=== PATIENT | male | born 1995 | race Caucasian/White ===

== ENCOUNTER 2021-11-30 14:35 | Emergency (ER) | payer OTHER, SELFPAY ==
[2021-11-30 14:36] VITALS: BP 144/124; PULSE 75; RESP 18; TEMP 35.9; O2SAT 100; BMI 19.3
[2021-11-30 15:32] VITALS: BP 144/124; PULSE 75; RESP 18; TEMP 35.9; O2SAT 100
[2021-11-30] MEDS: 0.9% Normal Saline 1,000 ML 1000 ML IV (15:45)
--- NOTE | 2021-11-30 16:11 | EDS_ITS ---
HPI History of Present Illness Chief Complaint: Nausea/Vomiting/Diarrhea Informant: patient Narrative Narrative: Patient states that he has nausea vomiting and watery diarrhea. He was drinking a lot of alcohol all day on Friday. The symptoms started Friday night. It continued yesterday and now today. He really is not able to eat or drink anything. No blood seen in vomitus or stool. No travel. No antibiotics. No history of chronic bowel disease although he has had some episodes like this in the past. No fevers or chills. No cough. No congestion. No loss of taste or smell. No myalgias. He is gets occasional abdominal cramping but no real pain. Mostly gets cramping before he needs to vomit or move his bowels and then it resolves. Only abdominal surgery is appendectomy approximately fifth grade. PFSH PFSH Medical History no medical history Home Medications dicyclomine 20 mg PO TIDAC PRN #20 capsule 09/02/16 [Rx Last Taken Unknown] ondansetron 4 mg PO Q8H PRN PRN #10 tab 09/02/16 [Rx Last Taken Unknown] promethazine [Phenergan Suppository] 25 mg RECTAL Q6H PRN PRN #10 suppos. 09/02/16 [Rx Last Taken Unknown] ondansetron 4 mg PO Q8H PRN #10 tab 11/30/21 [Rx Last Taken Unknown] Allergy/AdvReac Type Severity Reaction Status Date / Time No Known Allergies Allergy Verified 11/30/21 14:36 Surgical History no surgical history Social History Smoking Status: Current every day smoker tobacco type: cigarettes ROS ROS ED Constitutional Constitutional ED: Denies chills or fever(s) Eyes Eyes: Denies change in vision ENT ENT ED: Denies rhinorrhea Cardiovascular Cardiovascular: Denies chest pain or palpitations Respiratory/Chest Respiratory/Chest: Denies cough, dyspnea or sputum Gastrointestinal Gastrointestinal: Reports diarrhea, nausea and vomiting; Denies melena Genitourinary Genitourinary ED: Denies dysuria or hematuria Musculoskeletal Musculoskeletal: Denies myalgias Integumentary Denies rash Neurologic Neurologic: Denies headache(s) or weakness Psychiatric Psychiatric: Denies anxiety or depression Endocrine Endocrinology: Denies polydipsia or polyuria Allergic/Immunologic Allergic/Immunologic ED: Denies mouth swelling, tongue swelling or urticaria EXAM Physical Exam Const Vital Signs: 11/30/21 14:36 11/30/21 15:32 11/30/21 16:24 Temperature 96.7 F L 96.7 F L Temperature Source Temporal Temporal Pulse Rate 75 75 Respiratory Rate 18 18 Blood Pressure 144/124 H 144/124 H 130/77 H Blood Pressure Mean 130 130 94 Pulse Ox 100 100 Oxygen Delivery Method Room Air Room Air 11/30/21 17:04 Temperature Temperature Source Pulse Rate 76 Respiratory Rate 16 Blood Pressure 130/82 H Blood Pressure Mean 98 Pulse Ox 97 Oxygen Delivery Method Room Air Positive well nourished and well developed General Appearance ED: well developed and NAD; Negative for cyanotic or diaphoretic HEENT Reports dry mucous membranes Negative for trauma or tenderness Mouth ED: Yes dry mucous membranes Mouth: dry mucous membranes Eyes General Eye ED: Negative for pale conjunctiva or scleral icterus Neck no JVD Chest Wall inspection of chest normal Resp normal respiratory effort and clear to auscultation bilaterally Auscultation: Negative for rales, rhonchi or wheezes Cardio regular rate and regular rhythm GI normal to inspection, nondistended, normoactive bowel sounds, non-tender and non-distended Auscultation: normoactive bowel sounds Palpation: soft Back/Spine no CVA tenderness General Back: CVA tenderness Extremity normal to inspection General Extremety ED: Negative for edema or tenderness General Extremity: Negative for edema Neuro oriented x3 Sensorium / Orientation: alert Psych mental status grossly normal Skin no rashes or lesions noted MDM MDM MDM Narrative Medical decision making narrative: Patient has normal CBC. Electrolytes show minimal elevation in the BUN. LFTs do show a slight bump in his bilirubin that might be due to heavy drinking. I rechecked the patient. He looks and feels much better. He like to go home. I will get him home on Zofran. If he develops fevers, pains, recurrent symptoms or blood in the stool or vomitus he should return. He states he had not eaten all day and then he drank a lot when this started. I encouraged him not to do that. Lab Data Attestation: I reviewed the patient's lab results. Labs: Laboratory Results - last 24 hr 11/30/21 11/30/21 15:25 15:25 WBC 9.4 RBC 5.28 Hgb 16.5 Hct 47.8 MCV 90.5 MCH 31.3 MCHC 34.5 RDW Std Deviation 41.1 RDW Coeff of [place] 12.5 Plt Count 172 MPV 10.3 Immature Gran % (Auto) 0.300 Neut % (Auto) 72.9 H Lymph % (Auto) 16.7 L [place] % (Auto) 9.8 Eos % (Auto) 0.0 Baso % (Auto) 0.3 Absolute Neuts (auto) 6.9 Absolute Lymphs (auto) 1.57 Nucleated RBC % 0 Sodium 133 L Potassium 3.8 Chloride 97 L Carbon Dioxide 25.0 Anion Gap 11 BUN 22 H Creatinine 1.12 Estim Creat Clear Calc 88.09 Est GFR (MDRD) Af Amer 103 Est GFR (MDRD) Non-Af 85 BUN/Creatinine Ratio 19.6 Glucose 110 H Calcium 9.8 Total Bilirubin 2.50 H AST 29 ALT 37 Alkaline Phosphatase 75 Total Protein 9.0 H Albumin 4.9 Globulin 4.1 Albumin/Globulin Ratio 1.2 Lipase 60 L Discharge Plan Triage Chief Complaint: Nausea/Vomiting/Diarrhea ED Provider: Bright Villanueva Dx/Rx/DC Orders Clinical Impression: Nausea vomiting and diarrhea Prescriptions: New ondansetron 4 mg tablet,disintegrating 4 mg PO Q8H PRN (Reason: nausea and vomiting) Qty: 10 RF: 0 No Action ondansetron 4 MG tablet 4 mg PO Q8H PRN PRN (Reason: Nausea) Qty: 10 RF: 0 dicyclomine 10 MG capsule 20 mg PO TIDAC PRN (Reason: Cramp) Qty: 20 RF: 0 promethazine [Promethegan] 25 MG suppository 25 mg RECTAL Q6H PRN PRN (Reason: Nausea) Qty: 10 RF: 0 Primary Care Provider: Tianna Mandel Referrals: Tianna Mandel MD [Primary Care Provider] - 3-5 Days if not improving Disposition Disposition: Home, Self Care
[2021-11-30] MEDS: Ondansetron 4 MG/2 ML Vial IV (16:18)
[2021-11-30 16:22] LABS: Absolute Lymphocyte Count 1.57 X10^3/uL (0.83-4.51); Absolute Neutrophil Count 6.9 X10^3/uL (2.0-7.7); Basophil# 0.03 X10^3/uL; Basophil% 0.3 % (0-1); Hematocrit 47.8 % (40-54); Hemoglobin 16.5 g/dL (13.0-16.5); Lymphocyte # 1.57 X10^3/ul (0.83-4.51); Lymphocyte % 16.7 % (19-41); Mean Corp Hgb Conc 34.5 g/dL (32-36); Mean Corpuscular Hgb 31.3 pg (27.0-32.0); Mean Corpuscular Volume 90.5 fL (80-94); Mean Platelet Vol. 10.3 fl (6.2-12.0); Monocyte# 0.92 X10^3/uL; Monocyte% 9.8 % (0-10); NRBC Flagged by Analyzer 0 % (0-5); Neutrophil # 6.87 X10^3/uL (2.7-7.7); Neutrophil % 72.9 % (47-70); Platelet Count 172 K/mm3 (150-450); RBC Distribution Width CV 12.5 % (11.6-14.6); RBC Distribution Width SD 41.1 fl (35.1-43.9); Red Blood Count 5.28 M/mm3 (4.6-6.2); White Blood Count 9.4 K/mm3 (4.4-11.0)
[2021-11-30 16:24] VITALS: BP 130/77
[2021-11-30 16:35] LABS: ALB/GLOB Ratio 1.2 RATIO (0.9-2.4); AST(SGOT) 29 U/L (15-37); Alanine Aminotransfer ALT/SGPT 37 U/L (16-61); Albumin, Serum 4.9 g/dL (3.2-5.0); Alkaline Phosphatase 75 U/L (45-117); Anion Gap 11 (5-15); BUN 22 mg/dL (7-18); BUN/Creat Ratio 19.6 RATIO (10-20); Calcium,Total 9.8 mg/dL (8.5-10.1); Chloride 97 mmol/L (98-107); Creatinine, Serum 1.12 mg/dL (0.70-1.30); EST Glomerular Filtration Rate 85 mL/min (>60); Est Glom Filt Rate - Afr Amer 103 mL/min (>60); Estimated Creatinine Clearance 88.09 ml/min; Globulin 4.1 g/dL (2.2-4.2); Glucose 110 mg/dL (74-106); Lipase 60 U/L (73-393); Potassium 3.8 mmol/L (3.5-5.1); Sodium Level 133 mmol/L (136-145)
[2021-11-30 17:04] VITALS: BP 130/82; PULSE 76; RESP 16; O2SAT 97
== END 2021-11-30 18:00 | disposition home or self-care (01) ==
PROVIDERS: Emergency Provider Emergency Medicine; PCP Pediatrics
DX: R11.2 Nausea with vomiting, unspecified (principal); R19.7 Diarrhea, unspecified; F17.210 Nicotine dependence, cigarettes, uncomplicated
CPT/HCPCS: 80053; 83690; 85025; 96361; 96374; 99282; J7030; A4216; J2405

== ENCOUNTER 2023-07-17 21:47 | Emergency (ER) | payer OTHER, SELFPAY ==
[2023-07-17 21:49] VITALS: BP 155/115; PULSE 103; RESP 18; TEMP 36.3; O2SAT 100; BMI 20.8
--- NOTE | 2023-07-17 22:00 | EKG12_ITS ---
Test Reason : CP Blood Pressure : / mmHG Vent. Rate : 093 BPM Atrial Rate : 093 BPM P-R Int : 162 ms QRS Dur : 094 ms QT Int : 358 ms P-R-T Axes : 072 068 053 degrees QTc Int : 445 ms Normal sinus rhythm Normal ECG Confirmed by CELIA GUNTER ([id number]), associate editor NAREN QUINTANILLA ([id number]) on 07/21/2023 1:55:01 PM Referred By: TRAVIS Confirmed By:CELIA GUNTER
[2023-07-17] MEDS: Labetalol (Prefilled) 20 MG/4 ML IV (22:37)
[2023-07-17 22:46] LABS: Absolute Lymphocyte Count 2.22 X10^3/uL (0.83-4.51); Absolute Neutrophil Count 3.8 X10^3/uL (2.0-7.7); Basophil# 0.05 X10^3/uL; Basophil% 0.7 % (0-1); Eosinophil# 0.08 X10^3/uL; Eosinophils% 1.2 % (0-5); Hematocrit 41.8 % (40-54); Hemoglobin 13.8 g/dL (13.0-16.5); Lymphocyte # 2.22 X10^3/ul (0.83-4.51); Lymphocyte % 32.7 % (19-41); Mean Corpuscular Hgb 31.6 pg (27.0-32.0); Mean Corpuscular Volume 95.7 fL (80-94); Mean Platelet Vol. 9.7 fl (6.2-12.0); Monocyte# 0.63 X10^3/uL; Monocyte% 9.3 % (0-10); NRBC Flagged by Analyzer 0 % (0-5); Platelet Count 218 K/mm3 (150-450); RBC Distribution Width SD 46.5 fl (35.1-43.9); Red Blood Count 4.37 M/mm3 (4.6-6.2); White Blood Count 6.8 K/mm3 (4.4-11.0)
--- NOTE | 2023-07-17 22:50 | RAD_ITS ---
STUDY: X-RAY CHEST REASON FOR EXAM: Male, 28 years old. chest pain TECHNIQUE: PA and lateral views of the chest. COMPARISON: None. FINDINGS: The lungs are clear and expanded. There is no demonstrated pleural abnormality. Normal size heart. Normal mediastinum and yancy. Normal visualized pulmonary arteries. Normal visualized aortic arch and descending thoracic aorta. Normal visualized thoracic spine. Normal visualized ribs, clavicles, and shoulders. There is no demonstrated abnormality of the visualized soft tissue structures of the upper abdomen. RAD/Chest PA and Lateral IMPRESSION: Normal x-ray examination of the chest. Electronically Signed: Hamlet Jovel MD at 23:07 EDT ,
[2023-07-17 23:00] VITALS: BP 138/90; PULSE 72; RESP 20; O2SAT 96
[2023-07-17 23:04] LABS: Anion Gap 8 (5-15); BUN 15 mg/dL (7-18); BUN/Creat Ratio 18.7 RATIO (10-20); Calcium,Total 9.1 mg/dL (8.5-10.1); Chloride 108 mmol/L (98-107); EST Glomerular Filtration Rate 123 mL/min (>60); Est Glom Filt Rate - Afr Amer 149 mL/min (>60); Estimated Creatinine Clearance 126.67 ml/min; Glucose 89 mg/dL (74-106); Potassium 3.6 mmol/L (3.5-5.1); Sodium Level 141 mmol/L (136-145); Troponin-I HS 5 pg/mL (3.0-78.0)
[2023-07-18 00:22] VITALS: BP 134/94; PULSE 70; RESP 19; O2SAT 98
--- NOTE | 2023-07-18 00:39 | EX.ED.DYSGE1 ---
HPI History of Present Illness Chief Complaint: Chest Pain Informant: patient and spouse/S.O. Narrative Narrative: Patient is a 28-year-old male with no significant past medical history. He states he went to the dentist today and they took his blood pressure and it was elevated and secondary to this they would not remove his tooth. Patient states that he has had chest discomfort but its been present for the past month and a half. He does admit to smoking but otherwise denies any family history of heart disease at a young age. He also denies any excessive stimulant use or illicit drug use. PFSH PFSH Medical History no medical history Home Medications dicyclomine 10 mg capsule 20 mg (2 x 10 mg) PO TIDAC PRN Cramp ##20 09/02/16 [Rx Last Taken Unknown] ondansetron 4 mg disintegrating tablet 4 mg PO Q8H PRN PRN Nausea #10 tabs 09/02/16 [Rx Last Taken Unknown] promethazine 25 mg rectal suppository (Promethegan) 25 mg RECTAL Q6H PRN PRN Nausea ##10 09/02/16 [Rx Last Taken Unknown] ondansetron 4 mg disintegrating tablet 4 mg PO Q8H PRN nausea and vomiting #10 tabs 11/30/21 [Rx Last Taken Unknown] lisinopril 20 mg tablet 20 mg PO DAILY #30 tabs 07/18/23 [Rx Last Taken Unknown] Allergy/AdvReac Type Severity Reaction Status Date / Time No Known Allergies Allergy Verified 07/17/23 21:48 Surgical History no surgical history Social History Smoking Status: Current every day smoker tobacco type: cigarettes ROS ROS ED Constitutional Constitutional ED: Denies chills or fever(s) ENT ENT ED: Denies sore throat Cardiovascular Cardiovascular: Reports chest pain Respiratory/Chest Respiratory/Chest: Denies cough or dyspnea Gastrointestinal Gastrointestinal: Denies abdominal pain, diarrhea, nausea or vomiting Genitourinary Genitourinary ED: Denies dysuria Musculoskeletal Musculoskeletal: Denies myalgias Integumentary Denies rash Neurologic Neurologic: Denies headache(s), paresthesias or weakness Hematologic/Lymphatic Hematologic/Lymphatic: Denies easy bleeding or easy bruising EXAM Physical Exam Const Vital Signs: 07/17/23 21:49 07/17/23 22:32 07/17/23 23:00 Temperature 97.4 F L Temperature Source Temporal Pulse Rate 103 H 72 Respiratory Rate 18 20 H Respiratory Effort Normal Blood Pressure 155/115 H 138/90 H Blood Pressure Mean 128 106 Pulse Ox 100 96 Oxygen Delivery Method Room Air Room Air 07/18/23 00:22 07/18/23 00:43 Temperature Temperature Source Pulse Rate 70 87 Respiratory Rate 19 H 18 Respiratory Effort Blood Pressure 134/94 H 132/89 H Blood Pressure Mean 107 Pulse Ox 98 100 Oxygen Delivery Method Room Air Positive well nourished and well developed General Appearance ED: well developed HEENT HEENT Narrative: Normocephalic atraumatic Eyes PERRL and EOMs intact bilaterally General Eye ED: Negative for scleral icterus Neck supple Neck Narrative: No carotid bruit noted Chest Wall palpation of chest normal Resp normal respiratory effort and clear to auscultation bilaterally Cardio regular rate and regular rhythm Rate: other Other Details: Radial and carotid pulses are equal and symmetric GI normal to inspection, nondistended, normoactive bowel sounds, non-tender and non-distended GI Narrative: No voluntary guarding or rigidity. No pulsatile mass or fluid wave Auscultation: normoactive bowel sounds Palpation: soft Extremity normal to inspection Extremity Narrative: No asymmetric edema no pitting edema negative Homans' sign bilaterally Neuro oriented x3, CN's II-XII intact bilaterally and no sensory deficits noted Neuro Narrative: Cranial nerves II through XII are grossly intact there are no focal neurologic deficits. No pronator drift no dysmetria no truncal ataxia. NIH stroke scale score of 0 Sensorium / Orientation: alert Motor Exam: strength 5/5 throughout Psych mental status grossly normal Skin no rashes or lesions noted MDM MDM MDM Narrative Medical decision making narrative: Patient arrived to the ER hypertensive but otherwise with stable vitals. Differential diagnosis is for accelerated hypertension versus acute coronary syndrome versus pneumonia versus pleural effusion versus pneumothorax versus acute kidney injury. Secondary to this a basic cardiac work-up was performed. Labs revealed no signs of acute kidney injury and his troponin was normal at 5. Chest x-ray also revealed no acute lung pathology. Patient was given 1 dose of labetalol and had improvement of his blood pressure. On reevaluation he is resting comfortably and neuro exam remains normal. Therefore at this time with negative work-up and no signs of neurologic or cardiac event he can be given outpatient medication and discharged home History & Record Review Discussion w/independent historian: Patient and Significant other Lab Data Attestation: I reviewed the patient's lab results. Labs: Laboratory Results - last 24 hr 07/17/23 22:25 WBC 6.8 RBC 4.37 L Hgb 13.8 Hct 41.8 MCV 95.7 H MCH 31.6 MCHC 33.0 RDW Std Deviation 46.5 H RDW Coeff of [place] 13.0 Plt Count 218 MPV 9.7 Immature Gran % (Auto) 0.100 Neut % (Auto) 56.0 Lymph % (Auto) 32.7 [place] % (Auto) 9.3 Eos % (Auto) 1.2 Baso % (Auto) 0.7 Absolute Neuts (auto) 3.8 Absolute Lymphs (auto) 2.22 Nucleated RBC % 0 Sodium 141 Potassium 3.6 Chloride 108 H Carbon Dioxide 25.0 Anion Gap 8 BUN 15 Creatinine 0.80 Estim Creat Clear Calc 126.67 Est GFR (MDRD) Af Amer 149 Est GFR (MDRD) Non-Af 123 BUN/Creatinine Ratio 18.7 Glucose 89 Calcium 9.1 Troponin I High Sens 5 Radiography Diagnostic Testing: Clinical Impression(s) from Imaging Studies Chest X-Ray 07/17/23 22:50 IMPRESSION: Normal x-ray examination of the chest. Electronically Signed: Hamlet Jovel MD at 23:07 EDT Reading Location ID and State: 4 [facility] Tel , Service support , 2 view chest x-ray as interpreted by the emergency medicine physician reveals no acute infiltrate pneumothorax or pleural effusion Discharge Plan Triage Chief Complaint: Chest Pain ED Provider: Ramesh Martin Dx/Rx/DC Orders Clinical Impression: Acute nonspecific chest pain with low risk of coronary artery disease, Hypertension Instructions: Controlling High Blood Pressure Prescriptions: New lisinopril 20 mg tablet 20 mg PO DAILY Qty: 30 2RF No Action ondansetron 4 MG tablet 4 mg PO Q8H PRN PRN (Reason: Nausea) Qty: 10 0RF dicyclomine 10 MG capsule 20 mg PO TIDAC PRN (Reason: Cramp) Qty: 20 0RF promethazine [Promethegan] 25 MG suppository 25 mg RECTAL Q6H PRN PRN (Reason: Nausea) Qty: 10 0RF ondansetron 4 mg tablet,disintegrating 4 mg PO Q8H PRN (Reason: nausea and vomiting) Qty: 10 0RF Primary Care Provider: Care Physician,No Primary Referrals: Tianna Johansen MD [Med Staff - Technical Solution Architect] - Care Physician,No Primary [Primary Care Provider] - Activity Restrictions/Additional Instructions: Please continue to check your blood pressure and heart rate a few times a week and keep track of this and a blood pressure journal. Take your medication as directed and return to the ER should you have any further concerns Disposition Disposition: Home, Self Care Discharge Date/Time: 07/18/23 00:47
[2023-07-18 00:43] VITALS: BP 132/89; PULSE 87; RESP 18; O2SAT 100
== END 2023-07-18 00:47 | disposition home or self-care (01) ==
PROVIDERS: Emergency Provider Emergency Medicine; Visit Provider Emergency Medicine
DX: R07.9 Chest pain, unspecified (principal); F17.210 Nicotine dependence, cigarettes, uncomplicated
CPT/HCPCS: 71046; 80048; 84484; 85025; 93005; 96374; 99283; A4216

== ENCOUNTER 2024-05-12 06:54 | Emergency (ER) | payer OTHER, SELFPAY ==
[2024-05-12 06:54] VITALS: BP 177/111; PULSE 72; RESP 18; TEMP 36.2; O2SAT 97; BMI 19.1
--- NOTE | 2024-05-12 07:05 | NURSING ---
Pts signif other requesting work note for the past 3 days
--- NOTE | 2024-05-12 07:12 | ED.VIS.GI ---
HPI HPI - GI History of Present Illness Chief Complaint: Nausea/Vomiting Narrative Narrative: 28-year-old male who denies significant past medical history presents with nausea and vomiting that has had since Friday. His symptoms began approximately 4 days ago. He states this has happened to him in the past and it was from alcohol poisoning. He also admits that he does smoke marijuana but has not since his symptoms began. In the last 24 hours he vomited twice without any blood in his emesis. He states when he tries to eat or drink he cannot keep anything down. States he is not really having diarrhea or any bowel movement for that matter because he has not kept anything down in the last few days. Is having diffuse abdominal cramping. PFSH PFS Home Medications ?Medication ?Instructions ?Recorded ?Last Taken ?Type dicyclomine 10 mg capsule 20 mg (2 x 10 mg) PO TIDAC PRN 09/02/16 Unknown Rx Cramp ##20 ondansetron 4 mg disintegrating 4 mg PO Q8H PRN PRN Nausea #10 tabs 09/02/16 Unknown Rx tablet promethazine 25 mg rectal 25 mg RECTAL Q6H PRN PRN Nausea 09/02/16 Unknown Rx suppository (Promethegan) ##10 ondansetron 4 mg disintegrating 4 mg PO Q8H PRN nausea and 11/30/21 Unknown Rx tablet vomiting #10 tabs lisinopril 20 mg tablet 20 mg PO DAILY #30 tabs 07/18/23 Unknown Rx lisinopril 20 mg tablet 20 mg PO DAILY 30 days #30 tabs 07/18/23 Unknown Rx dicyclomine 20 mg tablet 20 mg PO TID #20 tabs 05/12/24 Unknown Rx ondansetron 4 mg disintegrating 4 mg PO Q6H PRN nausea and 05/12/24 Unknown Rx tablet vomiting #15 tabs potassium chloride 20 mEq 20 meq PO BID 2 days #4 tabs 05/12/24 Unknown Rx tablet,extended release Allergy/AdvReac Type Severity Reaction Status Date / Time No Known Allergies Allergy Verified 07/17/23 21:48 Social History Smoking Status: Current every day smoker tobacco type: cigarettes ROS ROS ED ROS Narrative Constitutional: No fever, no chills. HEENT: No sore throat. No neck pain. No loss of vision. No rhinorrhea. Cardiovascular: No chest pain. No palpitations. No pedal edema. Respiratory: No cough, no shortness of breath. Abdominal: Positive diffuse, crampy abdominal pain. Positive nausea and vomiting, twice in the last 24 hours. Genitourinary: No dysuria. No hematuria. Musculoskeletal: No myalgias. No arthralgias. Neurologic: No headaches. No dizziness. No lightheadedness. Skin: No rash. No change in color. Psychiatric: No depression. No anxiety. EXAM Physical Exam Narrative Exam Narrative: Afebrile. Vital signs noted. Regular rate and rhythm. Lungs clear to auscultation bilaterally. Abdomen soft minimal diffuse tenderness with normal active bowel sounds. No guarding or rebound. Mucous membranes moist. Neurological examination awake, alert, moves all extremities. Const Vital Signs: 05/12/24 06:54 05/12/24 08:54 05/12/24 09:00 Temperature 97.2 F L 97.6 F L Temperature Source Temporal Oral Pulse Rate 72 74 76 Respiratory Rate 18 16 16 Blood Pressure 177/111 H 157/117 H 147/104 H Blood Pressure Mean 133 130 118 Pulse Ox 97 99 99 Oxygen Delivery Method Room Air Room Air Room Air 05/12/24 09:38 Temperature 97.8 F Temperature Source Pulse Rate 74 Respiratory Rate 16 Blood Pressure 157/117 H Blood Pressure Mean 130 Pulse Ox 100 Oxygen Delivery Method MDM MDM MDM Narrative Medical decision making narrative: In the differential diagnosis is hyperemesis secondary to cannabis versus gastritis versus pancreatitis. I do not feel CT imaging is currently indicated. I reviewed his prior records and he has been written for dicyclomine and ondansetron in the past. He takes lisinopril for elevated blood pressure. It is currently elevated as well. Will obtain laboratory work to rule out pancreatitis. He was initially bolused normal saline and administered ondansetron. I reviewed his laboratory work and he has slightly elevated white count of 12.6 which may be demargination from vomiting. Hemoglobin normal at 14.8, hematocrit 44.4, platelet count normal at 229. Electrolyte panel shows mild hypokalemia of 3.3. I will refrain from replacing this orally as he is having nausea and vomiting, but will write him a prescription for 4 tablets. His glucose is appropriately elevated at 139 with a normal anion gap of 9. BUN normal at 18 and creatinine normal at 0.98. LFTs are remarkable for a total bili of 2.4 but this has been elevated in the past, almost chronic, AST normal at 27 and ALT 32. His lipase is normal at 64. Upon repeat examination, his nausea has improved and he has not vomited but he states his abdomen feels bloated. His fianc?e states that he had a bacterial infection previously and this is how it presented. Hence with concern for any colitis or even obstruction, I did order a CT of the abdomen and pelvis with IV contrast. I reviewed the radiology report which shows hepatomegaly, and he is status post appendectomy but no acute process. At this point in time, states he was still having cramping and he has been given Bentyl in the past. I ordered an intramuscular injection of Bentyl and wrote him prescriptions for dicyclomine and for ondansetron along with his potassium. At this point in time, I do feel that he can be discharged to follow-up with his primary care provider. Return instructions to the emergency department were reviewed. Disposition is discharged home in stable condition. History & Record Review Discussion w/independent historian: Patient and Significant other Additional record(s) reviewed:: Prior labs (Chronic elevated total bilirubin) Lab Data Attestation: I reviewed the patient's lab results. Labs: Laboratory Results - last 24 hr 05/12/24 07:25 WBC 12.6 H RBC 4.86 Hgb 14.8 Hct 44.4 MCV 91.4 MCH 30.5 MCHC 33.3 RDW Std Deviation 42.2 RDW Coeff of [place] 12.7 Plt Count 229 MPV 10.2 Immature Gran % (Auto) 0.500 Neut % (Auto) 77.7 H Lymph % (Auto) 14.5 L [place] % (Auto) 6.7 Eos % (Auto) 0.2 Baso % (Auto) 0.4 Absolute Neuts (auto) 9.8 H Absolute Lymphs (auto) 1.82 Nucleated RBC % 0 Sodium 136 Potassium 3.3 L Chloride 102 Carbon Dioxide 25.0 Anion Gap 9 BUN 18 Creatinine 0.98 Estim Creat Clear Calc 97.91 Est GFR (MDRD) Af Amer 118 Est GFR (MDRD) Non-Af 97 BUN/Creatinine Ratio 18.3 Glucose 139 H Calcium 9.7 Total Bilirubin 2.40 H AST 27 ALT 32 Alkaline Phosphatase 45 Total Protein 7.8 Albumin 4.6 Globulin 3.2 Albumin/Globulin Ratio 1.4 Lipase 64 Radiography Diagnostic Testing: Clinical Impression(s) from Imaging Studies Abdomen/Pelvis CT 05/12/24 08:37 IMPRESSION: Hepatomegaly. Status post appendectomy. Electronically Signed: Yoav Lou MD at 9:15 EDT , Discharge Plan Triage Chief Complaint: Nausea/Vomiting ED Provider: Elmo Davila Dx/Rx/DC Orders Clinical Impression: Nausea and vomiting, Abdominal pain, Hypokalemia Instructions: ED Cyclic Vomiting Syndrome, ED Diet Vomiting Diarrhea, ED Hypokalemia, ED Vomiting (Adult) Prescriptions: New dicyclomine 20 mg tablet 20 mg PO TID Qty: 20 0RF ondansetron 4 mg tablet,disintegrating 4 mg PO Q6H PRN (Reason: nausea and vomiting) Qty: 15 0RF potassium chloride 20 mEq tablet extended release 20 meq PO BID 2 Days Qty: 4 0RF No Action ondansetron 4 MG tablet 4 mg PO Q8H PRN PRN (Reason: Nausea) Qty: 10 0RF dicyclomine 10 MG capsule 20 mg PO TIDAC PRN (Reason: Cramp) Qty: 20 0RF promethazine [Promethegan] 25 MG suppository 25 mg RECTAL Q6H PRN PRN (Reason: Nausea) Qty: 10 0RF ondansetron 4 mg tablet,disintegrating 4 mg PO Q8H PRN (Reason: nausea and vomiting) Qty: 10 0RF lisinopril 20 mg tablet 20 mg PO DAILY Qty: 30 2RF lisinopril 20 mg tablet 20 mg PO DAILY 30 Days Qty: 30 0RF Stand Alone Forms: ED Work / School Excuse Primary Care Provider: Care Physician,No Primary Referrals: Hitesh Araujo MD [Med Staff - Active Staff] - As soon as possible Care Physician,No Primary [Primary Care Provider] - Print Language: Slovenian Disposition Disposition: Home, Self Care Discharge Date/Time: 05/12/24 09:46
[2024-05-12] MEDS: 0.9% Normal Saline (1000mL) 1,000 ML 999 ML IV (07:22)
[2024-05-12] MEDS: Ondansetron 4 MG/2 ML Vial IV (07:23)
[2024-05-12 07:32] LABS: Absolute Lymphocyte Count 1.82 X10^3/uL (0.83-4.51); Absolute Neutrophil Count 9.8 X10^3/uL (2.0-7.7); Basophil# 0.05 X10^3/uL; Basophil% 0.4 % (0-1); Eosinophil# 0.03 X10^3/uL; Eosinophils% 0.2 % (0-5); Hematocrit 44.4 % (40-54); Hemoglobin 14.8 g/dL (13.0-16.5); Lymphocyte # 1.82 X10^3/ul (0.83-4.51); Lymphocyte % 14.5 % (19-41); Mean Corp Hgb Conc 33.3 g/dL (32-36); Mean Corpuscular Hgb 30.5 pg (27.0-32.0); Mean Corpuscular Volume 91.4 fL (80-94); Mean Platelet Vol. 10.2 fl (6.2-12.0); Monocyte# 0.84 X10^3/uL; Monocyte% 6.7 % (0-10); NRBC Flagged by Analyzer 0 % (0-5); Neutrophil # 9.78 X10^3/uL (2.7-7.7); Neutrophil % 77.7 % (47-70); Platelet Count 229 K/mm3 (150-450); RBC Distribution Width CV 12.7 % (11.6-14.6); RBC Distribution Width SD 42.2 fl (35.1-43.9); Red Blood Count 4.86 M/mm3 (4.6-6.2); White Blood Count 12.6 K/mm3 (4.4-11.0)
[2024-05-12 07:48] LABS: ALB/GLOB Ratio 1.4 RATIO (0.9-2.4); AST(SGOT) 27 U/L (15-37); Alanine Aminotransfer ALT/SGPT 32 U/L (16-61); Albumin, Serum 4.6 g/dL (3.2-5.0); Alkaline Phosphatase 45 U/L (45-117); Anion Gap 9 (5-15); BUN 18 mg/dL (7-18); BUN/Creat Ratio 18.3 RATIO (10-20); Calcium,Total 9.7 mg/dL (8.5-10.1); Chloride 102 mmol/L (98-107); Creatinine, Serum 0.98 mg/dL (0.70-1.30); EST Glomerular Filtration Rate 97 mL/min (>60); Est Glom Filt Rate - Afr Amer 118 mL/min (>60); Estimated Creatinine Clearance 97.91 ml/min; Globulin 3.2 g/dL (2.2-4.2); Glucose 139 mg/dL (74-106); Lipase 64 U/L (13-75); Potassium 3.3 mmol/L (3.5-5.1); Protein, Total 7.8 g/dL (6.4-8.2); Sodium Level 136 mmol/L (136-145)
--- NOTE | 2024-05-12 08:37 | CT_ITS ---
STUDY: CT ABDOMEN AND PELVIS WITH CONTRAST REASON FOR EXAM: Male, 28 years old. Abdominal pain and bloating. RADIATION DOSAGE (If Supplied By Facility): CTDIvol = ( 9.35 ) mGy, DLP = ( 275.70 ) mGycm TECHNIQUE: Transaxial images were obtained from the dome of the diaphragm to the symphysis pubis without oral contrast. IV 100mL Isovue-[id number] was administered. Sagittal and coronal images were reconstructed. Individualized dose optimization techniques were used for this CT. COMPARISON: None. FINDINGS: The visualized lung bases are unremarkable. The visualized portions of the heart are within normal limits. There is hepatomegaly with diffuse hepatic enlargement. There is evidence of a edema in the portal triads. This is a nonspecific finding. This was seen on prior study dated June 21, 2008. Normal gallbladder and extrahepatic biliary system. Normal spleen. Normal pancreas. Normal bilateral adrenal glands. Normal right kidney. Normal left kidney. Normal visualized stomach. Normal small intestine. Normal colon. There are surgical clips in the region of the appendix consistent with a prior appendectomy. Normal abdominal aorta. Normal inferior vena cava. Normal retroperitoneum. Normal urinary bladder. Normal abdominal wall. Normal osseous structures. CT/Abdomen/Pelvis W IV Cont ONLY IMPRESSION: Hepatomegaly. Status post appendectomy. Electronically Signed: Yoav Lou MD at 9:15 EDT ,
[2024-05-12 08:54] VITALS: BP 157/117; PULSE 74; RESP 16; O2SAT 99
[2024-05-12 09:00] VITALS: BP 147/104; PULSE 76; RESP 16; TEMP 36.4; O2SAT 99
[2024-05-12 09:38] VITALS: BP 157/117; PULSE 74; RESP 16; TEMP 36.6; O2SAT 100
[2024-05-12] MEDS: Dicyclomine 20 MG/2 ML Vial IM (09:40)
== END 2024-05-12 09:46 | disposition home or self-care (01) ==
PROVIDERS: Emergency Provider Emergency Medicine; Visit Provider Emergency Medicine
DX: R11.2 Nausea with vomiting, unspecified (principal); R03.0 Elevated blood-pressure reading, without diagnosis of hypertension; Z90.89 Acquired absence of other organs; R10.9 Unspecified abdominal pain; E87.6 Hypokalemia; Z79.899 Other long term (current) drug therapy
CPT/HCPCS: 74177; 80053; 83690; 85025; 96361; 96372; 96374; 99283; J7030; Q9967; A4216; J2405

== ENCOUNTER → 2024-05-16 | Emergency (ER) | payer OTHER, SELFPAY ==
[2024-05-16 15:57] VITALS: BP 130/103; PULSE 80; RESP 16; TEMP 36.9; O2SAT 97; BMI 18.4
--- NOTE | 2024-05-16 16:07 | EDS_ITS ---
HPI <JES Eddy - Last Filed: 05/16/24 17:35> History of Present Illness Chief Complaint: Abd Pain Narrative Narrative: 28-year-old male states about 9 days ago he developed generalized abdominal cramping and vomiting. It started the day after he drank alcohol but he has not had any since. He states he vomits each morning and feels nauseous throughout the day. He can keep down a small amount of fluids but no food. He is having normal urination and small normal bowel movements. He was seen in the ER several days ago reports having labs and a CT scan which did not show anything acute. He has tried the prescribed Zofran and Bentyl without improvement. He smokes marijuana daily. Has had an appendectomy. PFSH <JES Eddy - Last Filed: 05/16/24 17:35> FORMERLY [facility], [facility]–1983 Home Medications ?Medication ?Instructions ?Recorded ?Last Taken ?Type dicyclomine 10 mg capsule 20 mg (2 x 10 mg) PO TIDAC PRN 09/02/16 Unknown Rx Cramp ##20 ondansetron 4 mg disintegrating 4 mg PO Q8H PRN PRN Nausea #10 tabs 09/02/16 Unknown Rx tablet promethazine 25 mg rectal 25 mg RECTAL Q6H PRN PRN Nausea 09/02/16 Unknown Rx suppository (Promethegan) ##10 ondansetron 4 mg disintegrating 4 mg PO Q8H PRN nausea and 11/30/21 Unknown Rx tablet vomiting #10 tabs lisinopril 20 mg tablet 20 mg PO DAILY #30 tabs 07/18/23 Unknown Rx lisinopril 20 mg tablet 20 mg PO DAILY 30 days #30 tabs 07/18/23 Unknown Rx dicyclomine 20 mg tablet 20 mg PO TID #20 tabs 05/12/24 Unknown Rx ondansetron 4 mg disintegrating 4 mg PO Q6H PRN nausea and 05/12/24 Unknown Rx tablet vomiting #15 tabs potassium chloride 20 mEq 20 meq PO BID 2 days #4 tabs 05/12/24 Unknown Rx tablet,extended release famotidine 20 mg tablet (Pepcid) 20 mg PO BID #14 tabs 05/16/24 Unknown Rx promethazine 25 mg tablet 25 mg PO TID PRN nausea and 05/16/24 Unknown Rx vomiting #10 tabs Allergy/AdvReac Type Severity Reaction Status Date / Time No Known Allergies Allergy Verified 07/17/23 21:48 Surgical History History of appendectomy Social History Smoking Status: Current every day smoker tobacco type: cigarettes ROS <JES Eddy - Last Filed: 05/16/24 17:35> ROS ED ROS Narrative Constitutional: Negative for fever, chills, malaise. CVS: Negative for chest pain. Respiratory: Negative for shortness of breath. GI: Positive for abdominal pain, nausea, vomiting. Negative for diarrhea, constipation, melena, hematochezia. : Negative for dysuria, hematuria or frequency. EXAM <JES Eddy - Last Filed: 05/16/24 17:35> Physical Exam Narrative Exam Narrative: CONST: Patient sitting in no acute distress. EYES: Normal inspection. ENT: Normal inspection, moist mucous membranes. NECK: Normal inspection. RESP: No respiratory distress, CTAB. CVS: Regular rate and rhythm, no murmur, no gallop. ABD: Soft with periumbilical tenderness, no guarding or rebound, nondistended, no hepatosplenomegaly. SKIN: Color normal, no rash, warm, dry, intact. EXTREMITIES: Normal appearance, no pedal edema. NEURO: Alert and answering questions appropriately. PSYCH: Normal affect. Const Vital Signs: 05/16/24 15:57 05/16/24 17:39 05/16/24 17:41 Temperature 98.5 F 97.4 F L 97.6 F L Temperature Source Oral Temporal Pulse Rate 80 71 71 Respiratory Rate 16 16 16 Blood Pressure 130/103 H 115/76 115/76 Blood Pressure Mean 112 89 89 Pulse Ox 97 95 95 Oxygen Delivery Method Room Air Room Air <Elmo Davila MD - Last Filed: 05/16/24 18:06> Physical Exam Const Vital Signs: 05/16/24 15:57 05/16/24 17:39 05/16/24 17:41 Temperature 98.5 F 97.4 F L 97.6 F L Temperature Source Oral Temporal Pulse Rate 80 71 71 Respiratory Rate 16 16 16 Blood Pressure 130/103 H 115/76 115/76 Blood Pressure Mean 112 89 89 Pulse Ox 97 95 95 Oxygen Delivery Method Room Air Room Air [facility] <JES Eddy - Last Filed: 05/16/24 17:35> [facility] Narrative Medical decision making narrative: Differential: Cannabis hyperemesis GERD/gastritis Electrolyte abnormality or TRINA Patient reports 9 days of nausea vomiting and abdominal pain. He appears well and nontoxic. Vital signs stable. Labs show WBC of 7.9 which is trending down from a few days ago. Electrolytes are unremarkable and renal function is normal. Total bilirubin is 2.90 which is not significantly changed. Normal LFTs. He was treated with IV fluids, Benadryl, and chlorpromazine and feels better and is drinking water in the ED. With improvement in labs and recent CT abdomen/pelvis show no acute findings I do not think further imaging is indicated. I prescribed Phenergan and Pepcid and I recommended marijuana cessation and primary care follow-up. He was discharged in stable condition. Lab Data Attestation: I reviewed the patient's lab results. Labs: Laboratory Results - last 24 hr 05/16/24 16:28 WBC 7.9 RBC 4.96 Hgb 15.4 Hct 45.9 MCV 92.5 MCH 31.0 MCHC 33.6 RDW Std Deviation 43.2 RDW Coeff of [place] 12.7 Plt Count 200 MPV 9.9 Immature Gran % (Auto) 0.300 Neut % (Auto) 73.5 H Lymph % (Auto) 19.8 [place] % (Auto) 5.9 Eos % (Auto) 0.1 Baso % (Auto) 0.4 Absolute Neuts (auto) 5.8 Absolute Lymphs (auto) 1.57 Nucleated RBC % 0 Sodium 135 L Potassium 3.7 Chloride 102 Carbon Dioxide 25.0 Anion Gap 8 BUN 18 Creatinine 1.07 Estim Creat Clear Calc 86.32 Est GFR (MDRD) Af Amer 107 Est GFR (MDRD) Non-Af 88 BUN/Creatinine Ratio 16.8 Glucose 144 H Calcium 9.6 Total Bilirubin 2.90 H AST 19 ALT 28 Alkaline Phosphatase 42 L Total Protein 7.8 Albumin 4.6 Globulin 3.2 Albumin/Globulin Ratio 1.4 <Elmo Davila MD - Last Filed: 05/16/24 18:06> [facility] Lab Data Labs: Laboratory Results - last 24 hr 05/16/24 16:28 WBC 7.9 RBC 4.96 Hgb 15.4 Hct 45.9 MCV 92.5 MCH 31.0 MCHC 33.6 RDW Std Deviation 43.2 RDW Coeff of [place] 12.7 Plt Count 200 MPV 9.9 Immature Gran % (Auto) 0.300 Neut % (Auto) 73.5 H Lymph % (Auto) 19.8 [place] % (Auto) 5.9 Eos % (Auto) 0.1 Baso % (Auto) 0.4 Absolute Neuts (auto) 5.8 Absolute Lymphs (auto) 1.57 Nucleated RBC % 0 Sodium 135 L Potassium 3.7 Chloride 102 Carbon Dioxide 25.0 Anion Gap 8 BUN 18 Creatinine 1.07 Estim Creat Clear Calc 86.32 Est GFR (MDRD) Af Amer 107 Est GFR (MDRD) Non-Af 88 BUN/Creatinine Ratio 16.8 Glucose 144 H Calcium 9.6 Total Bilirubin 2.90 H AST 19 ALT 28 Alkaline Phosphatase 42 L Total Protein 7.8 Albumin 4.6 Globulin 3.2 Albumin/Globulin Ratio 1.4 Treatment and Re-Evaluation :: Dr. Davila: I have personally performed a face to face assessment of the patient and have reviewed the CALISTA Note. I performed a substantive portion of the visit including all aspects of the following. My jernigan findings include: History is nausea and vomiting. Reported cannabis use. Seen in the emergency department a few days ago. Exam is afebrile. Vital signs noted. Regular rate and rhythm. Lungs clear to auscultation bilaterally. Abdomen soft nontender with normoactive bowel sounds. Medical Decision Making: I reviewed the patient's prior records and laboratory work. He was seen by myself recently. He had CT imaging at that time, within the last few days. I do not feel that repeat CT imaging is indicated. He was i nstructed on possibility that his continuous nausea and vomiting could be secondary to use of cannabis. He was referred for follow-up with gastroenterology as well. Check laboratory work. IV fluids. Cyclic vomiting medications. P.o. challenge. Discharge. Other additions or changes: [None] Discharge Plan Triage Chief Complaint: Abd Pain ED Midlevel Provider: Shannan Becerra ED Provider: Elmo Davila Dx/Rx/DC Orders Clinical Impression: Nausea and vomiting, Abdominal pain Instructions: Abdominal Pain, ED Vomiting (Adult) Prescriptions: New famotidine [Pepcid] 20 mg tablet 20 mg PO BID Qty: 14 0RF promethazine 25 mg tablet 25 mg PO TID PRN (Reason: nausea and vomiting) Qty: 10 0RF No Action ondansetron 4 MG tablet 4 mg PO Q8H PRN PRN (Reason: Nausea) Qty: 10 0RF dicyclomine 10 MG capsule 20 mg PO TIDAC PRN (Reason: Cramp) Qty: 20 0RF promethazine [Promethegan] 25 MG suppository 25 mg RECTAL Q6H PRN PRN (Reason: Nausea) Qty: 10 0RF ondansetron 4 mg tablet,disintegrating 4 mg PO Q8H PRN (Reason: nausea and vomiting) Qty: 10 0RF lisinopril 20 mg tablet 20 mg PO DAILY Qty: 30 2RF lisinopril 20 mg tablet 20 mg PO DAILY 30 Days Qty: 30 0RF dicyclomine 20 mg tablet 20 mg PO TID Qty: 20 0RF ondansetron 4 mg tablet,disintegrating 4 mg PO Q6H PRN (Reason: nausea and vomiting) Qty: 15 0RF potassium chloride 20 mEq tablet extended release 20 meq PO BID 2 Days Qty: 4 0RF Stand Alone Forms: ED Work / School Excuse Primary Care Provider: Care Physician,No Primary Referrals: Gabriela Jenkins DO [Med Staff - Creative Arts Therapist] - Care Physician,No Primary [Primary Care Provider] - Activity Restrictions/Additional Instructions: Call the primary care doctor for a follow-up appointment. I prescribed Phenergan which is different nausea medication and Pepcid which treats stomach acid. Your symptoms could be related to smoking marijuana. Even people who smoke long-term can develop cyclical vomiting syndrome and abdominal pain from marijuana use. I recommend you stop smoking to improve your symptoms. Print Language: Togolese Disposition Disposition: Home, Self Care
[2024-05-16] MEDS: 0.9% Normal Saline (1000mL) 1,000 ML 999 ML IV (16:20)
[2024-05-16] MEDS: DiphenhydrAMINE 25 MG, ChlorproMAZINE IM 25 MG in 0.9% Normal Saline (100mL Bag) 100 ML 203 MG IV (16:31)
[2024-05-16 16:33] LABS: Absolute Lymphocyte Count 1.57 X10^3/uL (0.83-4.51); Absolute Neutrophil Count 5.8 X10^3/uL (2.0-7.7); Basophil# 0.03 X10^3/uL; Basophil% 0.4 % (0-1); Eosinophil# 0.01 X10^3/uL; Eosinophils% 0.1 % (0-5); Hematocrit 45.9 % (40-54); Hemoglobin 15.4 g/dL (13.0-16.5); Lymphocyte # 1.57 X10^3/ul (0.83-4.51); Lymphocyte % 19.8 % (19-41); Mean Corp Hgb Conc 33.6 g/dL (32-36); Mean Corpuscular Volume 92.5 fL (80-94); Mean Platelet Vol. 9.9 fl (6.2-12.0); Monocyte# 0.47 X10^3/uL; Monocyte% 5.9 % (0-10); NRBC Flagged by Analyzer 0 % (0-5); Neutrophil # 5.84 X10^3/uL (2.7-7.7); Neutrophil % 73.5 % (47-70); Platelet Count 200 K/mm3 (150-450); RBC Distribution Width CV 12.7 % (11.6-14.6); RBC Distribution Width SD 43.2 fl (35.1-43.9); Red Blood Count 4.96 M/mm3 (4.6-6.2); White Blood Count 7.9 K/mm3 (4.4-11.0)
[2024-05-16 16:49] LABS: ALB/GLOB Ratio 1.4 RATIO (0.9-2.4); AST(SGOT) 19 U/L (15-37); Alanine Aminotransfer ALT/SGPT 28 U/L (16-61); Albumin, Serum 4.6 g/dL (3.2-5.0); Alkaline Phosphatase 42 U/L (45-117); Anion Gap 8 (5-15); BUN 18 mg/dL (7-18); BUN/Creat Ratio 16.8 RATIO (10-20); Calcium,Total 9.6 mg/dL (8.5-10.1); Chloride 102 mmol/L (98-107); Creatinine, Serum 1.07 mg/dL (0.70-1.30); EST Glomerular Filtration Rate 88 mL/min (>60); Est Glom Filt Rate - Afr Amer 107 mL/min (>60); Estimated Creatinine Clearance 86.32 ml/min; Globulin 3.2 g/dL (2.2-4.2); Glucose 144 mg/dL (74-106); Potassium 3.7 mmol/L (3.5-5.1); Protein, Total 7.8 g/dL (6.4-8.2); Sodium Level 135 mmol/L (136-145)
[2024-05-16 17:39] VITALS: BP 115/76; PULSE 71; RESP 16; TEMP 36.3; O2SAT 95
[2024-05-16 17:41] VITALS: BP 115/76; PULSE 71; RESP 16; TEMP 36.4; O2SAT 95
== END | disposition home or self-care (01) ==
PROVIDERS: Physician Assistant; Emergency Provider Emergency Medicine; Visit Provider Emergency Medicine
DX: R11.2 Nausea with vomiting, unspecified (principal); R10.9 Unspecified abdominal pain; F17.210 Nicotine dependence, cigarettes, uncomplicated; Z90.49 Acquired absence of other specified parts of digestive tract
CPT/HCPCS: 80053; 85025; 99282; J7030; A4216